=== PATIENT | female | born 1930 | race Caucasian/White ===

== ENCOUNTER → 2016-12-05 | Day surgery (SDC) | payer MEDICARE ==
[~2016-12-05] VITALS: Ht 160 cm; Wt 101.5 kg
[~2016-12-05] MED LIST: CENTRUM SILVER1 EAC1 PO; COLACE100 MG PO; IMDUR30 MG PO; LEVOTHROID (S112 MCG PO; LOPRESSOR50 MG PO; MIRALAX17 GM PO; TRIAMTERENE-HC1 EACH PO; XARELTO15 MG PO; ZOCOR40 MG PO
--- NOTE | ~2016-12-05 | OR ---
PATIENT'S NAME: KRISTINE MANZO I [facility] AGE: 86 Y [address] 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 Right distal ureteral calculus. 2. Chronic renal insufficiency. POSTOPERATIVE DIAGNOSES: 1. Right distal ureteral calculus. 2. Chronic renal insufficiency. PROCEDURE: Cystoscopy with retrograde followed by right ureteroscopy and stone basket extraction followed by right ureteral stent placement. ANESTHESIA: Sedation. INDICATION: This is an 86-year-old lady. Curt Mcclure had evaluated yesterday. She had some right-sided abdominal pain. She ended up with an approximately 4-mm stone impacted in the distal third. She had significant hydroureteronephrosis behind it. Interestingly, she had blood work done within the last week or so with creatinine of 1.3. With this acute obstruction, her creatinine is over 2. She has significant intercurrent disease. She was referred for intervention. With her Xarelto therapy, I cautioned the family that we may not have a good visualization. If we have any bleeding, we will stop and come back. DESCRIPTION OF PROCEDURE: Having obtained informed consent from the family (the patient has significant dementia). The patient was taken to the cystoscopy suite. She is prepped and draped sterilely and in lithotomy position. IV sedation was administered. A 21-[place] cystoscope was assembled and guided into the urethra. The course of the urethra was unremarkable for a cystocele. We have to look down to see the orifices. Her bladder was below her symphysis on fluoroscopy. She has some old blood at the base of the bladder. It looks to be coming from the right orifice. Careful examination of bladder using the 30-degree and 70-degree lenses after washing out that old blood reveals no abnormalities. She has a number of phleboliths as we had appreciated from her CT scan review. I do not see a definite stone. She has retained contrast from her oral PATIENT'S NAME: KRISTINE MANZO I [facility] AGE: 86 Y [address] ROOM: [place], [place] [address] LOCATION: [facility] ADMIT DATE: 12/05/2016 OR/Procedure Report DISCHARGE DATE: FAMILY PHYSICIAN: CHINYERE FARNCISCO (NAZIA) ATTENDING PHYSICIAN: Caroline Jain contrast, and she had a lot of clips in the right upper quadrant, in addition to her phleboliths. I obtained retrogrades to identify the stone. It is just below the SI joint on the right side. The left side is unremarkable. A balloon dilator was passed. The orifice and intramural tunnel are dilated gently. The ureteroscope was then passed. She is having some mild bleeding, but visualization was adequate. I visualized the stone as anticipated from the retrograde study. With the laser on standby, we should be able to pull out without breaking it up. Therefore a Nitinol basket was passed. The stone was engaged and extracted. It is sent for analysis. With the hydronephrosis and with her renal insufficiency, I felt it prudent to stent her. My safety wire was back loaded into the cystoscope. Over that, I passed a 4.8 multilink stent. We have a nice level of placement cystoscopically and fluoroscopically. The patient tolerated the procedure well. Blood loss was negligible. The stone was sent for analysis. The patient returned to recovery area in awake and in stable condition. CAROLINE JAIN MD [facility]/modl /[id number] CC: Chinyere Francisco MD d: 12/05/16 1516 t: 12/18/16 0634, OPERATIVE SUMMARY
--- NOTE | 2016-12-05 11:19 | NUR ---
Pt is 86 y/o female admit for outpatient cysto for kidney stone. attending. Denies allergies. Hx htn,hypercholest,hypothyroidism,constipation, breast cancer,left mastectomy,slight dementia. Resides at home by herself. PT came from [facility] [employer] Hx of right upper quadrant pain. Has some leaking/dribbling normally and has chronic lower back pain. PT alert and oriented x3. Family at bedside.
== END | disposition disaster alternative care site (69) ==
LOC: GPOC 10:00 → GSDC 10:00
PROC: 0TC68ZZ Extirpation of Matter from Right Ureter, Via Natural or Artificial Opening Endoscopic (ICD-10-PCS; principal; 2016-12-05)
PROC: 0T768DZ Dilation of Right Ureter with Intraluminal Device, Via Natural or Artificial Opening Endoscopic (ICD-10-PCS; 2016-12-05)
DX: N13.2 Hydronephrosis with renal and ureteral calculous obstruction (principal); I12.9 Hypertensive chronic kidney disease with stage 1 through stage 4 chronic kidney disease, or unspecified chronic kidney disease; N18.9 Chronic kidney disease, unspecified; E78.5 Hyperlipidemia, unspecified; F03.90 Unspecified dementia, unspecified severity, without behavioral disturbance, psychotic disturbance, mood disturbance, and anxiety; E03.9 Hypothyroidism, unspecified; Z96.653 Presence of artificial knee joint, bilateral; Z90.49 Acquired absence of other specified parts of digestive tract; Z90.710 Acquired absence of both cervix and uterus; Z98.890 Other specified postprocedural states; Z79.899 Other long term (current) drug therapy
CPT/HCPCS: C1725; C1769; C2617; J1956; J2001; J7120